=== PATIENT | female | born 1935 | race Caucasian/White ===

== ENCOUNTER 2017-11-02 12:00 | Inpatient (IN) | payer OTHER ==
[~2017-11-02] VITALS: Ht 160 cm; Wt 91.2 kg
[2017-11-02] MEDS ORDERED: ZOCOR40 MG PO (14:05)
[2017-11-02] MEDS ORDERED: SINGULAIR 10MG10 MG PO (14:06)
[2017-11-02] MEDS ORDERED: NEURIN SL (14:06)
[2017-11-02] MEDS ORDERED: AMILODIPINE PO (14:07)
[2017-11-02] MEDS ORDERED: ATORVASTATIN CA20 MG PO (14:07)
[2017-11-02] MEDS ORDERED: [UNRECOGNIZED DRUG - CODE] PO (14:10)
[2017-11-02] MEDS ORDERED: [UNRECOGNIZED DRUG - OTHER] PO (14:11)
[2017-11-14] MEDS ORDERED: DOCUSATE SODIU100 MG PO (09:49)
[2017-11-14] MEDS ORDERED: CLONAZEPAM1 MG PO (09:51)
[2017-11-14] MEDS ORDERED: PERCOCET 5-3251 EACH PO (09:51)
== END 2017-11-14 13:12 | disposition home or self-care (01) | DRG 454 ==
LOC: O/R 11-13 04:56 → SURH 11-13 07:00 → PED 11-13 10:17 → SURH 11-13 12:00 → PED 11-14 13:12
PROVIDERS: Orthopaedic Surgery Orthopaedic Surgery of the Spine
PROC: 0RG2071 Fusion of 2 or more Cervical Vertebral Joints with Autologous Tissue Substitute, Posterior Approach, Posterior Column, Open Approach (ICD-10-PCS; 2017-11-13)
PROC: 0RT30ZZ Resection of Cervical Vertebral Disc, Open Approach (ICD-10-PCS; 2017-11-13)
PROC: 07DS3ZZ Extraction of Vertebral Bone Marrow, Percutaneous Approach (ICD-10-PCS; 2017-11-13)
PROC: 0RG20A0 Fusion of 2 or more Cervical Vertebral Joints with Interbody Fusion Device, Anterior Approach, Anterior Column, Open Approach (ICD-10-PCS; principal; 2017-11-13 07:00)
DX: M50.01 Cervical disc disorder with myelopathy, high cervical region (principal); M47.12 Other spondylosis with myelopathy, cervical region; I10 Essential (primary) hypertension

== ENCOUNTER 2017-11-18 07:20 | Emergency (ER) | payer OTHER ==
[~2017-11-18] VITALS: Ht 160 cm; Wt 89.8 kg
[~2017-11-18 07:20] MED LIST: AMILODIPINE PO; ATORVASTATIN CA20 MG PO; CLONAZEPAM1 MG PO; DOCUSATE SODIU100 MG PO; NEURIN SL; PERCOCET 5-3251 EACH PO; SINGULAIR 10MG10 MG PO; ZOCOR40 MG PO; [UNRECOGNIZED DRUG - CODE] PO; [UNRECOGNIZED DRUG - OTHER] PO
[2017-11-18] MEDS ORDERED: STOOL SOFTENER100 MG (07:46)
[2017-11-18] MEDS ORDERED: CLONAZEPAM1 MG (07:46)
[2017-11-18] MEDS ORDERED: OXYC1TAB9 (07:46)
== END 2017-11-18 09:49 | disposition home or self-care (01) ==
LOC: ER 07:20
DX: G89.18 Other acute postprocedural pain (principal); M54.2 Cervicalgia

== ENCOUNTER 2018-02-28 11:30 | Inpatient (IN) | payer OTHER ==
[~2018-02-28] VITALS: Ht 160 cm; Wt 89.8 kg
[~2018-02-28 11:30] MED LIST changes: +CLONAZEPAM1 MG; +OXYC1TAB9; +STOOL SOFTENER100 MG
[2018-02-28] MEDS ORDERED: OMEPRAZOLE40 MG PO (13:28)
[2018-02-28] MEDS ORDERED: GABAPENTIN400 MG PO (13:29)
[2018-02-28] MEDS ORDERED: PROAIR HFA8.5 GM IH (13:30)
[2018-02-28] MEDS ORDERED: FOLGARD TABLET1 EACH PO (13:30)
[2018-02-28] MEDS ORDERED: ADVAIR 100-501 EACH IH (13:30)
[2018-03-15] MEDS ORDERED: GABAPENTIN800 MG PO (10:09)
[2018-03-15] MEDS ORDERED: DOCUSATE SODIU100 MG PO (10:10)
[2018-03-15] MEDS ORDERED: AMOX-CLAV 875-1 EACH PO (10:10)
[2018-03-15] MEDS ORDERED: PERCOCET 5-3251 EACH PO (10:11)
[2018-03-15] MEDS ORDERED: CLONAZEPAM1 MG PO (10:11)
== END 2018-03-15 17:53 | DRG 455 ==
LOC: SURG 03-14 08:26 → O/R 03-14 08:26 → SURH 03-14 09:45 → SURG 03-14 13:45
PROVIDERS: Orthopaedic Surgery Orthopaedic Surgery of the Spine
PROC: 0SG1071 Fusion of 2 or more Lumbar Vertebral Joints with Autologous Tissue Substitute, Posterior Approach, Posterior Column, Open Approach (ICD-10-PCS; 2018-03-14)
PROC: 0ST20ZZ Resection of Lumbar Vertebral Disc, Open Approach (ICD-10-PCS; 2018-03-14)
PROC: 0SG10AJ Fusion of 2 or more Lumbar Vertebral Joints with Interbody Fusion Device, Posterior Approach, Anterior Column, Open Approach (ICD-10-PCS; 2018-03-14)
PROC: 07DS3ZZ Extraction of Vertebral Bone Marrow, Percutaneous Approach (ICD-10-PCS; 2018-03-14)
PROC: 0SG10A0 Fusion of 2 or more Lumbar Vertebral Joints with Interbody Fusion Device, Anterior Approach, Anterior Column, Open Approach (ICD-10-PCS; principal; 2018-03-14 09:45)
DX: M41.86 Other forms of scoliosis, lumbar region (principal); M51.36 Other intervertebral disc degeneration, lumbar region; M48.061 Spinal stenosis, lumbar region without neurogenic claudication; M51.16 Intervertebral disc disorders with radiculopathy, lumbar region; I10 Essential (primary) hypertension

== ENCOUNTER 2018-03-28 08:49 | Emergency (ER) | payer OTHER ==
[~2018-03-28] VITALS: Ht 160 cm; Wt 88.5 kg
[~2018-03-28 08:49] MED LIST changes: +ADVAIR 100-501 EACH IH; +AMOX-CLAV 875-1 EACH PO; +FOLGARD TABLET1 EACH PO; +GABAPENTIN400 MG PO; +GABAPENTIN800 MG PO; +OMEPRAZOLE40 MG PO; +PROAIR HFA8.5 GM IH
[2018-03-28] MEDS ORDERED: MEDROLPACK PO (11:38)
[2018-03-28] MEDS ORDERED: KETO10TA2 PO (11:38)
== END 2018-03-28 12:20 | disposition home or self-care (01) ==
LOC: ER 08:49
DX: M79.662 Pain in left lower leg (principal); R60.0 Localized edema